=== PATIENT | male | born 1960 | race Two or more races ===

== ENCOUNTER 2021-11-10 08:13 | Outpatient (CLI) | payer OTHER | END 2021-11-10 23:59 | disposition home or self-care (01) | LOC: LAB 08:13 | PROVIDERS: ATTEND Orthopaedic Surgery | DX: Z01.812 Encounter for preprocedural laboratory examination (principal); Z20.822 Contact with and (suspected) exposure to COVID-19 ==

== ENCOUNTER 2021-11-11 09:42 | Outpatient (CLI) | payer OTHER ==
[2021-11-11 10:43] LABS: HEMATOCRIT 38.7 % (36.7-47.1); MEAN CORPUSCULAR HEMOGLOBIN 29.9 uug (23.8-33.4); MEAN CORPUSCULAR VOLUME 83.6 fL (73.0-96.2); PLATELET COUNT (AUTO) 219 K/uL (152-348)
[2021-11-11 10:57] LABS: CREATININE 1.7 mg/dL (0.6-1.3); POTASSIUM 4.5 mmol/L (3.5-5.1)
[2021-11-11 11:03] LABS: BILIRUBIN,TOTAL 0.7 mg/dL (0.2-1.0); TOTAL PROTEIN, SERUM 8.2 g/dL (6.4-8.2)
[2021-11-11 11:12] LABS: *BILIRUBIN,URIN NEGATIVE (NEGATIVE); *BLOOD, URINE NEGATIVE (NEGATIVE); *CLARITY,URINE CLEAR (CLEAR); *COLOR,URINE YELLOW (YELLOW); *KETONES,URINE NEGATIVE (NEGATIVE); *UROBILINOGEN,URINE 0.2 E.U./dl (NORMAL); LEUKOCYTE ESTERASE ,URINE NEGATIVE (NEGATIVE); NITRITE, URINE NEGATIVE (NEGATIVE); PH,URINE 5.5 (5.0-8.0); UGLUCOSE NEGATIVE (NEGATIVE)
== END 2021-11-11 23:59 | disposition home or self-care (01) ==
LOC: LAB 09:42
PROVIDERS: ATTEND Orthopaedic Surgery
DX: Z01.818 Encounter for other preprocedural examination (principal); S46.011D Strain of muscle(s) and tendon(s) of the rotator cuff of right shoulder, subsequent encounter; X58.XXXD Exposure to other specified factors, subsequent encounter; M19.011 Primary osteoarthritis, right shoulder; M25.511 Pain in right shoulder; I10 Essential (primary) hypertension; E11.9 Type 2 diabetes mellitus without complications; E78.5 Hyperlipidemia, unspecified
CPT/HCPCS: 36415; 71045; 85025; 85730; 93005; A4663

== ENCOUNTER 2021-11-12 06:46 | Day surgery (SDC) | payer OTHER ==
[2021-11-12] MEDS ORDERED: ROCURONIUM BROMIDE 50 MG/5 ML VIAL ONE (08:00)
[2021-11-12] MEDS ORDERED: HYDROMORPHONE 2 MG/1 ML DISP.SYRIN ONE (08:00)
[2021-11-12] MEDS ORDERED: SEVOFLURANE 250 ML BOTTLE ONE (08:17)
[2021-11-12] MEDS ORDERED: FENTANYL CITRATE 100 MCG/2 ML AMPUL ONE (10:22)
[2021-11-12] MEDS ORDERED: DEXAMETHASONE SOD PHOSPHATE 4 MG INJ ONE (11:09)
[2021-11-12] MEDS ORDERED: LIDOCAINE-MPF 2% 5 ML VIAL ONE (11:09)
[2021-11-12] MEDS ORDERED: ONDANSETRON 4 MG/2 ML VIAL ONE (11:09)
[2021-11-12] MEDS ORDERED: GLYCOPYRROLATE 0.2 MG/ML VIAL ONE ×2 (11:09)
[2021-11-12] MEDS ORDERED: SUCCINYLCHOLINE CHLORIDE 200 MG/10 ML VIAL ONE (11:09)
[2021-11-12] MEDS ORDERED: KETOROLAC TROMETHAMINE 30 MG INJ ONE (11:09)
[2021-11-12] MEDS ORDERED: NEOSTIGMINE METHYLSULFATE 10 MG/10 ML VIAL ONE (11:09)
[2021-11-12] MEDS ORDERED: CEFAZOLIN 1 G VIAL ONE ×2 (11:09)
[2021-11-12] MEDS ORDERED: EPHEDRINE SULFATE 50 MG/ML AMPUL ONE (11:09)
[2021-11-12] MEDS ORDERED: PROPOFOL 200 MG/20 ML BOTTLE ONE ×2 (11:09)
[2021-11-12] MEDS ORDERED: HYDROCODONE/APAP 5-325MG TABLET ONE (11:57)
== END 2021-11-12 12:40 | disposition home or self-care (01) ==
LOC: DS 06:46
PROVIDERS: ATTEND Orthopaedic Surgery
DX: M19.011 Primary osteoarthritis, right shoulder (principal); M75.41 Impingement syndrome of right shoulder; I10 Essential (primary) hypertension; E11.9 Type 2 diabetes mellitus without complications; Z79.899 Other long term (current) drug therapy; Z98.890 Other specified postprocedural states; Z72.89 Other problems related to lifestyle
CPT/HCPCS: 23415; 23120; 23130; J0690 ×2; J1100; J3490 ×5; J1885; J2405; J0330; J3010; J1170; J7120; A4565; A4649